=== PATIENT | female | born 1965 | race Caucasian/White ===

== ENCOUNTER 2022-01-08 17:32 | Emergency (ER) | payer BC, SELFPAY ==
[2022-01-08 19:11] LABS: Appearance Urine Clear (Clear); Bilirubin Urine Negative (Negative); Blood Urine 3+ (Negative); Color Urine Amber (Yellow); Glucose Urine Negative (Negative); Ketones Urine Negative (Negative); Leukocyte Esterase Urine 1+ (Negative); Nitrite Urine Negative (Negative); Protein Urine 2+ (Negative); Urobilinogen Urine 0.2 (0.2-1.0); pH Urine 5.5 (5.0-8.5)
[2022-01-08 19:14] VITALS: BP 160/75; PULSE 70; RESP 18; TEMP 36.5; O2SAT 99; BMI 24.6
[2022-01-08 19:20] LABS: Mucus Urine Few; Squamous Epithelial Cell Urine Few (None-Few)
--- NOTE | 2022-01-08 19:29 | ED.GENADULT ---
HPI - General Adult General Chief complaint: Urogenital Problems, Female Stated complaint: CLOTS OF BLOOD IN URINE Time Seen by Provider: 01/08/22 19:20 Source: patient Mode of arrival: ambulatory Limitations: no limitations History of Present Illness HPI narrative: Patient is a 56-year-old female coming in today complaining of blood in her urine. She stated that she developed dysuria yesterday with little specks of blood in it. Today the dysuria got worse and the specks turn into bigger size blood clots. She complains of a little suprapubic discomfort and mild right flank discomfort as well. She denies any fevers or chills. No nausea or vomiting. Nothing seems to make the pain better or worse. She does feel like she can not completely empty her bladder and she feels like she has to urinate more often than usual. She states that she had a urinary bladder infection several months ago that presented the exact same way. She was on antibiotics and all of her symptoms cleared up. Related Data Home Medications Medication Instructions Recorded Confirmed albuterol sulfate 90 mcg/actuation 2 inhalation PRN 10/04/21 10/04/21 aerosol inhaler lamotrigine 100 mg tablet 100 mg PO BID 10/04/21 10/04/21 propranolol 10 mg tablet 10 mg PO DAILY 10/04/21 10/04/21 sumatriptan succinate 50 mg tablet 50 mg PO .As Needed PRN 10/04/21 10/04/21 Previous Rx's Medication Instructions Recorded zolpidem 5 mg tablet 5 mg PO .HS #30 tabs 09/25/21 cephalexin 500 mg capsule 500 mg PO TID 7 days #21 caps 01/08/22 Allergies Allergy/AdvReac Type Severity Reaction Status Date / Time amoxicillin Allergy Mild Rash Verified 10/04/21 10:39 atorvastatin Allergy Mild systemic Verified 10/04/21 10:39 pain hydrocodone AdvReac Mild rash, Verified 10/04/21 10:39 itching rosuvastatin AdvReac Mild Muscle Pain Verified 10/04/21 10:39 Penicillin Allergy Mild Rash Uncoded 10/04/21 10:39 Sulfamethoxazole / AdvReac Mild Rash Uncoded 10/04/21 10:39 trimethoprim Review of Systems Status of ROS: Reports: 10 or more systems reviewed and unremarkable except as noted in History and below [facility] Medical History History of stress test Surgical History History of bladder repair surgery (2000) History of colonoscopy History of hand surgery (02/08/20) History of hysterectomy (2000) History of tonsillectomy History of vaginal surgery (04/12/18) Family History Father Cardiovascular disease Diabetes Mother Lung cancer Other High blood pressure High cholesterol Social History Narrative: has 3 children non-smoker Smoking Status: Never smoker Exam Narrative: Exam Narrative: Well-nourished well-developed patient in no acute distress. Alert and oriented. Answers questions appropriately. Mood and affect are appropriate. Thoughts are goal oriented and rational. No tangential or magical thinking noted. Patient speaks in full sentences without needing to catch their breath. HEENT: Normocephalic atraumatic. Pupils are equally round reactive to light. Extraocular muscles are intact. Conjunctivae are moist without any icterus noted. Cardiovascular: Heart is regular rate and rhythm S1 and S2 are present without any murmurs. Lungs: Clear to auscultation bilaterally no wheezes rhonchi or rales are appreciated. Patient takes deep breaths without any discomfort. Abdomen: Soft and nondistended with normal bowel sounds. She has mild suprapubic discomfort. Mild CVA discomfort on the right side. Extremities: Bilateral lower extremities are without edema. Normal DP and PT pulses. Skin: Well perfused without any obvious rashes. Const: Vital Signs, click to edit/add: Vital Signs - 24 hr 01/08/22 19:14 Temperature 97.7 F Pulse Rate [Right Pulse Oximeter] 70 Respiratory Rate 18 Blood Pressure [Ri ght Upper Arm] 160/75 H Pulse Oximetry 99 Oxygen Delivery Me thod Room Air Course Course Hospital Course: Urinalysis is positive for blood, leukocyte esterase. Vital Signs Vital signs: Initial Vital Signs Temperature 97.7 F 01/08/22 19:14 Temperature Source Temporal Artery Scan 01/08/22 19:14 Pulse Rate 70 01/08/22 19:14 Respiratory Rate 18 01/08/22 19:14 Blood Pressure 160/75 H 01/08/22 19:14 Blood Pressure Mean 103 01/08/22 19:14 Blood Pressure Position Sitting 01/08/22 19:14 Pulse Oximetry 99 01/08/22 19:14 Oxygen Delivery Method 01/08/22 19:14 Vital Signs Temperature 97.7 F 01/08/22 19:14 Pulse Rate 70 01/08/22 19:14 Respiratory Rate 18 01/08/22 19:14 Blood Pressure 160/75 H 01/08/22 19:14 Pulse Oximetry 99 01/08/22 19:14 Oxygen Delivery Method 01/08/22 19:14 Temperature 97.7 F 01/08/22 19:14 Pulse Rate 70 01/08/22 19:14 Respiratory Rate 18 01/08/22 19:14 Blood Pressure 160/75 H 01/08/22 19:14 Pulse Oximetry 99 01/08/22 19:14 Oxygen Delivery Method 01/08/22 19:14 Medical Decision Making MDM Narrative Medical decision making narrative: 56-year-old female with hematuria pure in treated with an antibiotic to see if this clears up. I do recommend she follow up with her primary care provider in 2 weeks to discuss a repeat urinalysis and next steps in management. Patient was agreeable had no other questions. Lab Data Lab results reviewed: Yes I reviewed the patient's lab results Labs: Lab Results 01/08/22 Range/Units 18:40 Urine Color Rebecca A (Yellow) Urine Appearance Clear (Clear) Urine pH 5.5 (5.0-8.5) Ur Specific Meno 1.010 (1.000-1.030) Urine Protein 2+ A (Negative) Urine Glucose (UA) Negative (Negative) Urine Ketones Negative (Negative) Urine Blood 3+ A (Negative) Urine Nitrite Negative (Negative) Urine Bilirubin Negative (Negative) Urine Urobilinogen 0.2 (0.2-1.0) Ur Leukocyte Esterase 1+ A (Negative) Urine RBC 5-10 A (0-2) Urine WBC 5-10 A (0-5) Ur Squamous Epith Cells Few (None-Few) Urine Bacteria None (None) Urine Mucus Few A (None) Discharge Plan Discharge Clinical Impression: UTI (urinary tract infection), Hematuria Patient Disposition: Home, Self-Care Condition: Stable Additional Instructions: Take antibiotics as prescribed. Recommend you follow up with primary care provider in 2 weeks for repeat urine test to make sure the blood is cleared up completely. Prescriptions: New cephalexin 500 mg capsule 500 mg PO TID 7 Days Qty: 21 0RF No Action lamotrigine 100 mg tablet 100 mg PO BID albuterol sulfate 90 mcg/actuation HFA aerosol inhaler 2 inhalation PRN propranolol 10 mg tablet 10 mg PO DAILY sumatriptan succinate 50 mg tablet 50 mg PO .As Needed PRN Rx Instructions: ONE TAB AT ONSET OF HEADACHE, MAY REPEAT Q2H PRN, MAX 200 MG/24 HRS zolpidem 5 mg tablet 5 mg PO .HS Qty: 30 3RF Follow Up/Referrals: Bakari Santana PA-C [Primary Care Provider] - Stand Alone Forms: [employer] Info Instructions
[2022-01-08 19:48] VITALS: BP 160/75; PULSE 70; RESP 18; TEMP 36.5
== END 2022-01-08 19:49 | disposition home or self-care (01) ==
LOC: ED 19:45
PROVIDERS: Emergency Provider Family Medicine; PCP Physician Assistant Medical
DX: N39.0 Urinary tract infection, site not specified (principal); Z87.440 Personal history of urinary (tract) infections; Z88.0 Allergy status to penicillin; Z88.1 Allergy status to other antibiotic agents; Z88.2 Allergy status to sulfonamides; Z88.5 Allergy status to narcotic agent; Z88.8 Allergy status to other drugs, medicaments and biological substances
CPT/HCPCS: 81001; 87086; 99283; 99284

== ENCOUNTER 2022-01-29 07:34 | Outpatient (CLI) | payer BC, SELFPAY ==
[2022-01-29 14:33] LABS: Chloride* 105 mmol/L (96-114); Potassium* 4.7 mmol/L (3.6-5.1); Sodium* 140 mmol/L (135-149)
[2022-01-29 14:36] LABS: Blood Urea Nitrogen* 11 mg/dL (7-30); Carbon Dioxide* 26 mmol/L (20-32); Creatinine* 0.7 mg/dL (0.5-1.5); Estimated Glomerular Filt Rate 100 ml/min
[2022-01-29 14:37] LABS: Calcium* 9.8 mg/dL (8.4-10.6); Glucose* 103 mg/dL (60-115)
== END 2022-01-29 07:35 | disposition home or self-care (01) ==
LOC: FRMREF 07:35
PROVIDERS: PCP Physician Assistant Medical; Visit Provider Physician Assistant Medical
DX: R30.0 Dysuria (principal); N39.0 Urinary tract infection, site not specified
CPT/HCPCS: 80048; 87086; 87186

== ENCOUNTER 2022-02-05 07:29 | Outpatient (CLI) | payer BC, SELFPAY ==
--- NOTE | 2022-02-05 08:00 | CRLHL7_ITS ---
For Patients: As a result of the Century Cures Act, medical imaging exams and procedure reports are released immediately into your electronic medical record. You may view this report before your referring provider. If you have questions, please contact your health care provider. INDICATION: Hematuria. Bladder repair. Hysterectomy. TECHNIQUE: Noncontrast abdominal pelvic CT. COMPARISON: Correlation is made with an abdomen ultrasound July 31, [address]. [facility] at May 26, 2018. FINDINGS: Clear included lung bases. The unenhanced liver, spleen, pancreas, both adrenal glands and both kidneys are within normal limits. No renal stones or obstruction. Cholelithiasis without CT evidence for cholecystitis. Minimal vascular calcifications scattered throughout a normal caliber abdominal aorta and proximal common iliac arteries. The stomach and duodenum are within normal limits. The remainder of the small bowel is unremarkable. There is no evidence for appendicitis or diverticulitis. No bowel obstruction or ileus. No ascites or lymphadenopathy. The urinary bladder is unremarkable. Calcified pelvic phleboliths. Surgically absent uterus. No adnexal mass. The included skeleton is within normal limits. IMPRESSION: 1. No acute abdominopelvic process identified. 2. No urinary tract calculi or renal obstruction. 3. Cholelithiasis without cholecystitis. 4. Subtle increased attenuation of central and left mesenteric fat with a few slightly prominent lymph nodes nonspecific but unchanged. 5. Absent uterus. 6. No significant change when compared with a prior CT 05/26/2018 from [facility] other than technique. Please note that all CT scans at this facility use dose modulation, iterative reconstruction, and/or weight-based dosing when appropriate to reduce radiation dose to as low as reasonably achievable. Dictated by Chidi Rodriguez MD @ 02/05/2022 9:01:40 AM (Electronically Signed)
== END 2022-02-05 07:30 | disposition home or self-care (01) ==
LOC: CT 07:31
PROVIDERS: PCP Physician Assistant Medical; Visit Provider Physician Assistant Medical
DX: R31.9 Hematuria, unspecified (principal); K80.20 Calculus of gallbladder without cholecystitis without obstruction
CPT/HCPCS: 74176

== ENCOUNTER 2022-04-15 14:05 | Outpatient (REF) | payer BC, SELFPAY ==
[2022-04-17 00:28] LABS: Lamotrigine 5.4 ug/mL (3.0-15.0)
== END 2022-04-15 14:06 | disposition home or self-care (01) ==
LOC: LAB 14:05
PROVIDERS: PCP Physician Assistant Medical; Visit Provider Psychiatry & Neurology Neurology
DX: Z51.81 Encounter for therapeutic drug level monitoring (principal)
CPT/HCPCS: 36415; 80175

== ENCOUNTER 2022-09-25 07:33 | Outpatient (CLI) | payer BC, SELFPAY | END 2022-09-25 07:34 | disposition home or self-care (01) | LOC: NFLDREF 09-26 14:10 | PROVIDERS: PCP Physician Assistant Medical; Referring Provider Physician Assistant Medical; Visit Provider Physician Assistant Medical | DX: R53.83 Other fatigue (principal); J45.20 Mild intermittent asthma, uncomplicated; F41.9 Anxiety disorder, unspecified; E78.2 Mixed hyperlipidemia; Z13.6 Encounter for screening for cardiovascular disorders | CPT/HCPCS: 80061; 86618 ==

== ENCOUNTER 2022-12-23 13:52 | Outpatient (CLI) | payer BC, SELFPAY ==
[2022-12-23 14:35] VITALS: BP 126/69; PULSE 84
--- NOTE | 2022-12-23 15:44 | W.PM.STED ---
Stress Test Note Date Date of test: 12/23/22 Providers Primary care provider: Bakari Santana Stress test physician: Eliecer Patricio Stress Test Note Stress test ordered: Stress Echo Indication for test: Shortness of breath Stress test medicine: None Results discussion: Patient is a very nice 57-year-old female presents here for a stress echo, with the primary indication of shortness of breath cardiac stress test medical history form is reviewed, she accepts the risks benefits and side effects of this test would like to proceed. Pre test EKG shows normal sinus rhythm, ventricular rate is 67, blood pressure 114/68. No acute ST wave changes. Patient is exercised for a total time of 10 minutes 2nd, and achieved a metabolic equivalent of 11.7 Mets, with a maximum heart rate is 155 which is 113% of the maximum. Test is terminated because of fulfillment of protocol, during this test she did not have any evidence of any subjective symptoms of ischemia such as chest pain shortness of breath or other issues she did have some ST wave depression noted both inferiorly and laterally, and old leads 2 3 and AVF, this was horizontal, and 1.7 mm. Laterally she had slightly upsloping, of 1.5 mm Impression: Negative subjective, subjectively positive stress test, ST wave depression noted above. This may be a false positive given her high level of exercise and otherwise asymptomatic nature. Clinical correlation with echo results is suggested. Follow up suggested: Await echo results, these will be read by Cardiology, patient left this testing facility in good condition, there were no complications
== END 2022-12-23 13:53 | disposition home or self-care (01) ==
LOC: STRESS 13:52
PROVIDERS: PCP Physician Assistant Medical; Visit Provider Family Medicine
DX: R06.02 Shortness of breath (principal)
CPT/HCPCS: 93016; 93325; 93351

== ENCOUNTER 2023-04-14 10:11 | Outpatient (CLI) | payer BC, SELFPAY ==
--- OUTSIDE RECORDS SUMMARY | 2023-04-15 07:17 | XMS_ITS | Clinical Summary ---
Author Name Unknown Organization [place] Address [facility] [place] [address] Care Team Providers Care Behavioral Intervention Specialist Name Role Phone Doris Clements Primary Care Provider Unavai lable Allergies No known active allergies Resolved Problems Problem Noted Date Diagnosed Date Resolved Date Wrist pain 08/29/2009 11/27/2009 Social History Tobacco Use Types Packs/Day Years Used Date Smoking Tobacco: Never Assessed Adolescent Education Answer Date Record ed Getting School Help Needed Not on file 12/13 Sex and Gender Information Value Date Recorded Sex Assigned at Not on file Gender Identity Not on file Sexual Orientation Not on file Plan of Treatment Health Maintenance Due Date Last Done Comments ADVANCE CARE PLANNING 1965 ANNUAL REVIEW OF HM ORDERS 1963 CT COLONOGRAPHY 1963 FIT 1963 FLEX SIG 1963 GLUCOSE 1963 HEPATITIS B IMMUNIZATION (1 of 3 - 3-dose series) 1965 MAMMO SCREENING 1963 YEARLY PREVENTIVE VISIT 1963 sDNA (Cologuard) 1965 COVID-19 Vaccine (#1) 03/30/1964 COLONOSCOPY 09/27/1973 COLORECTAL CANCER SCREENING 09/27/1973 HIV SCREENING 09/27/1978 HEPATITIS C SCREENING 09/27/1981 PAP 09/27/1984 LIPID 2003 ZOSTER IMMUNIZATION (1 of 2) 09/27/2013 DTAP/TDAP/TD IMMUNIZATION (2 - Td or Tdap) 08/02/2018 08/02/2008 INFLUENZA VACCINE (#1) 2022 9, 01/22/2006, 02/13/2004 PHQ-2 (once per calendar year) 2023 HPV IMMUNIZATION Aged Out No longer e ligible based on patient's age to complete this topic IPV IMMUNIZATION Aged Out No longer e ligible based on patient's age to complete this topic MENINGITIS IMMUNIZATION Aged Out No l onger eligible based on patient's age to complete this topic Pneumococcal Vaccine: Pediatrics (0 to 5 Years) and At-Risk Patients (6 to 64 Years) Aged Out No longer eligible b ased on patient's age to complete this topic RSV MONOCLONAL ANTIBODY Aged Out No l onger eligible based on patient's age to complete this topic Care Teams Behavioral Intervention Specialist Relationship Specialty Start Date End Date Doris Clements PCP - General 09/28/12
--- OUTSIDE RECORDS SUMMARY | 2023-04-15 07:17 | XMS_ITS | Clinical Summary ---
Author Name Unknown Organization [employer] [facility] [employer] Address [place], [place] [address] Care Team Providers Care Content Checker Name Role Phone Tin Burgos MD Unavailable [phone] [place], [facility] Primary Care Provider Unavailable Allergies Active Allergy Reactions Criticality Noted Date Comments Amoxicillin Rash 08/02/2008 Tolerates cefuroxime Sulfamethoxazole-Trimet hoprim Dizziness 02/24/2012 Atorvastatin Myalgia High 01/16/2017 Penicillins *Unknown - Follow up needed 03/29/2013 Tolerates cefuroxime Hydrocodone-Acetaminoph en Itching 11/23/2008 Medications Medication Sig Dispensed Refills Start Date End Date Status SUMAtriptan (IMITREX) 25 mg tabletIndications:Surendra alyse with aura, not intractable, without status migrainosus Take 1 tablet by mouth at onset of migraine. May repeat in 2 hours if needed. Max dose:200mg per 24 hrs. 9 tablet 6 02/26/2017 Active ibuprofen (ADVIL; MOTRIN) 200 mg tabletIndications:Com plication of implanted vaginal mesh, initial encounter Take 3 tablets by mouth every 6 hours. 100 tablet 0 04/12/2018 Active propranolol (INDERAL) 10 mg tabletIndications:Anx iety FOR ANXIETY TAKE 1 TABLET BY MOUTH EVERY 8 HOURS NEEDED FOR ANXIETY. 90 tablet 0 04/28/2018 Active zolpidem (AMBIEN) 5 mg tabletIndications:Oth er insomnia Take 1 tablet by mouth at bedtime if needed for Sleep. TAKE ONE TABLET BY MOUTH AT BEDTIME IF NEEDED FOR SLEEP 30 tablet 3 08/19/2018 Active albuterol HFA (PROAIR HFA) 90 mcg/actuation inhalerIndications:Mi ld intermittent asthma without complication INHALE 1-2 PUFFS BY MOUTH EVERY 4 HOURS IF NEEDED. 8.5 Inhaler 6 08/19/2018 Active hydrOXYzine pamoate (VISTARIL) 25 mg capsuleIndications:An xiety Take 1 capsule by mouth 3 times daily if needed for Anxiety. 12 capsule 0 12/13/2018 Active diazePAM (VALIUM) 2 mg tabletIndications:Men ingiomas, multiple (HC) Please take 1 tablet 30 minutes prior to MRI. May repeat x1 30 minutes later if needed. 2 tablet 0 12/14/2018 Active diazePAM (VALIUM) 2 mg tabletIndications:Men ingiomas, multiple (HC) Please take 1 tablet 30 minutes prior to MRI. May repeat x1 30 minutes later if needed. 2 tablet 0 01/30/2020 Active diazePAM (Valium) 2 mg tabletIndications:Cer ebral meningioma (HC) Please take 1 tablet 30 minutes prior to MRI. May repeat x1 30 minutes later if needed. 2 Tablet 0 11/06/2022 Active Active Problems Problem Noted Date Diagnosed Date Mixed stress and urge urinary incontinence 09/01 Meningioma 08/19/2018 Rotator cuff syndrome of left shoulder 6 Overview: MRI Feb 2016:, RC Tendonopathy without tear with bursitis. Subacromial cortisone injection completed. Anxiety disorder 11/04/2013 Insomnia, unspecified 07/12/2008 Mild intermittent asthma 01/15/2006 Overview: Asthma action plan updated. 09/24/2012 intermittent Neoplasm of unspecified nature of brain 01/16/20 06 Overview: meningioma. found 10/12 Pure hypercholesterolemia 07/30/2005 Resolved Problems Problem Noted Date Diagnosed Date Resolved Date Vaginal granulation tissue 01/04/2018 0 09/01/2018 Simple ovarian cyst 11/21/2015 10/28/19 17 Routine adult health maintenance 01/03/2014 12/19/2014 Overview: Colonoscopy 12/2013 normal repeat in 10 years SINUSITIS, ACUTE MAXILLARY 01/27/2001 1 03/17/2005 CONJUNCTIVITIS 05/21/2000 01/15/2006 SINUSITIS, ACUTE NEC 10/22/1999 006 Immunizations Name Administration Dates Next Due Influenza, IIV3 (Age >=3 years) 01/22/2006,02/12 Tdap 08/02/2008 Tuberculin (PPD) 10/16/2014 Family History Medical History Relation Name Comments Diabetes Father Heart Disease Father Cancer Mother 54, lung c ancer with mets, great aunt Other Mother lung cancer Cancer-colon Other great aunt mate rnal side Cancer-breast Paternal Grandmother ? Diabetes Paternal Grandmother Relation Name Status Comments Father Other Maternal Grandfather Maternal Grandmother Mother (Age 54) Other Paternal Grandfather Paternal Grandmother Sister Alive Social History Tobacco Use Types Packs/Day Years Used Date Smoking Tobacco: Never Smokeless Tobacco: Never Tobacco Cessation:Counseling Given: Yes Alcohol Use Standard Drinks/Week Comments Yes 1 (1 standard drink = 0.6 oz pur e alcohol) 2 drinks monthly PHQ-2 Answer Date Recorded PHQ-2 Score 1 08/19/2018 Sex and Gender Information Value Date Recorded Sex Assigned at Not on file Gender Identity Not on file Sexual Orientation Not on file Obstetrics History Para Term AB IAB SAB Ectopic Multiple Livin g Live Births 3 3 1 2 0 0 0 0 0 3 3 Date Outcome GA Total Labor Labor/2nd/3rd Weight Sex Delivery Anes PTL Isabella A1 A5 Name Cl in Vag Mari ng Vag Mari ng Term Vag Mari ng Last Filed Vital Signs Vital Sign Reading Time Taken Comments Blood Pressure 155/66 12/13/2018 7:00 PM CDT Pulse 71 12/13/2018 7:00 PM CDT Temperature 37.2 ??C (99 ??F) 12/13/2018 6:02 PM CDT Respiratory Rate 18 12/13/2018 7:00 PM CDT Oxygen Saturation 97% 12/13/2018 7:00 PM CDT Inhaled Oxygen Concentration - - Weight 69.4 kg (153 lb) 12/13/2018 6:02 PM CDT Height 167.6 cm (5' 6) 12/13/2018 6:02 PM CDT Body Mass Index 24.69 12/13/2018 6:02 PM CDT Plan of Treatment Health Maintenance Due Date Last Done Comments COVID-19 vaccine series (#1) 03/30/1964 HIV for age 15-65 09/27/1978 Zoster (shingles) series for age 50+ (1 of 2) 09/27/2013 Tetanus booster 08/02/2018 08/02/2008 Mammogram for age 45-75 02/06/2019 02/07/20 18 ([facility] 02/04/2016, 11/09/2013, Additional history exists BMI (ht and wt on same day) for age 18+ 08/20/2019 08/19/2018, 05/18/2018, 04/02/2018, Additional history exists Depression screening for age 12+ 08/20/2019 08/19/2018, 05/26/2018, 02/08/2018, Additional history exists Lipids for age 45-75 01/13/2022 01/13/2017, 10/31/2015, 11/04/2013, Additional history exists Influenza for age 50-64 11/07/2022 01/22/2006, 02/12 Colonoscopy through age 75 01/04/2024 01/03/2014 Tdap Completed 08/02/2008 Hepatitis C screening for age 18-79 Completed 11/04/2013 Pneumococcal series for age 6-64 Aged Out No longer eligible based on patient's age to complete this topic Advance Directives Latest Code Status on File Code Status Date Activated Date Inactivated Comments Full Code 04/12/2018 6:17 AM 04/12/2018 3:02 PM Code Status History Code Status Date Activated Date Inactivated Comments Full Code 04/12/2018 6:17 AM 04/12/2018 6:17 AM Care Teams Content Checker Relationship Specialty Start Date End Date [place], *[facility] PCP - General 12/13/18 Tin Burgos MD [address] Griselda Franco [address] [address] Neurosurgery 11/04/13
--- OUTSIDE RECORDS SUMMARY | 2023-04-15 07:17 | XMS_ITS | Referral Summary ---
Author Name Unknown Organization [place] Address [address] [place] [id number] Care Team Providers Care Cartridge Feeder Name Role Phone Doris Clements Primary Care [...] Orientation Not on file Plan of Treatment Not on file Care Teams Cartridge Feeder Relationship Specialty Start Date End Date Doris Clements PCP - General 09/28/12
== END 2023-04-14 10:12 | disposition home or self-care (01) ==
LOC: NFLDREF 04-15 07:13
PROVIDERS: PCP Physician Assistant Medical; Referring Provider Physician Assistant Medical; Visit Provider Physician Assistant Medical
DX: N30.01 Acute cystitis with hematuria (principal); B96.20 Unspecified Escherichia coli [E. coli] as the cause of diseases classified elsewhere
CPT/HCPCS: 87086; 87186

== ENCOUNTER 2023-06-16 16:00 | Outpatient (REF) | payer BC, SELFPAY ==
--- OUTSIDE RECORDS SUMMARY | 2023-06-16 16:03 | XMS_ITS | Referral Summary ---
Author Name Unknown Organization [facility] Address [address] [place] [id number] Care Team Providers Care Premium Cancellation Clerk Name Role Phone Doris Clements Primary Care [...] of Treatment Not on file Care Teams Premium Cancellation Clerk Relationship Specialty Start Date End Date Doris Clements PCP - General 09/28/12
--- OUTSIDE RECORDS SUMMARY | 2023-06-16 16:03 | XMS_ITS | Clinical Summary ---
Author Name Unknown Organization [facility] Address [place], [place] [address] Care Team Providers Care Professor Of Poultry Science Name Role Phone Tin Burgos MD Unavailable [phone] [place], [facility] Primary Care Provider Unavailable Allergies Active Allergy [...] by mouth every 6 hours. 100 tablet 04/12/2018 Active propranolol (INDERAL) 10 mg tabletIndications:Anx iety FOR ANXIETY TAKE 1 TABLET BY MOUTH EVERY 8 HOURS NEEDED FOR ANXIETY. 90 tablet 04/28/2018 Active zolpidem (AMBIEN) 5 mg tabletIndications:Oth [...] daily if needed for Anxiety. 12 capsule 12/13/2018 Active diazePAM (VALIUM) 2 mg tabletIndications:Men ingiomas, multiple (HC) Please take 1 tablet 30 minutes prior to MRI. May repeat x1 30 minutes later if needed. 2 tablet 12/14/2018 Active diazePAM (VALIUM) 2 mg tabletIndications:Men ingiomas, multiple (HC) Please take 1 tablet 30 minutes prior to MRI. May repeat x1 30 minutes later if needed. 2 tablet 01/30/2020 Active diazePAM (Valium) 2 mg tabletIndications:Cer ebral meningioma (HC) Please take 1 tablet 30 minutes prior to MRI. May repeat x1 30 minutes later if needed. 2 Tablet 11/06/2022 Active Active Problems Problem Noted Date [...] Health Maintenance Due Date Last Done Comments HIV for age 15-65 09/27/1978 Zoster (shingles) series for age 50+ (1 of 2) 09/27/2013 Tetanus booster 08/02/2018 08/02/2008 Mammogram for age 45-75 02/06/2019 02/07/20 18 (Completed outside of [facility]), 02/04/2016, 11/09/2013, Additional history exists BMI (ht and wt on same day) for age 18+ 08/20/2019 08/19/2018, 05/18/2018, 04/02/2018, Additional history exists Depression screening for age 12+ 08/20/2019 08/19/2018, 05/26/2018, 02/08/2018, Additional history exists Lipids for age 45-75 01/13/2022 01/13/2017, 10/31/2015, 11/04/2013, Additional history exists COVID-19 vaccine series (2022- season) 2022 Influenza for age 50-64 11/08/2023 01/22/2006, 02/12 Colonoscopy through age 75 01/04/2024 01/03/2014 Tdap Completed 08/02/2008 Hepatitis C screening for age 18-79 Completed 11/04/2013 Pneumococcal series for age 6-64 Aged Out No longer eligible based on patient's age to complete this topic Procedures Procedure Name Priority Date/Time Associated Diagnosis Comments LIPID PANEL W REFLEX MEASURED LDL Routine 01/13/2017 9:58 AM GREY WASHER Pure hypercholesterolemia XR MAMMO BILAT SCREEN FFDM (IA) Routine 02/04/2016 2:11 PM GREY WASHER Screening for breast cancer ANTI HCV Routine 11/04/2013 10:53 AM CDT Need for hepatitis C screening test from Last 3 Months or Most Recently Relevant to Health Maintenance Results * (ABNORMAL) LIPID PANEL W REFLEX MEASURED LDL (01/13/2017 9:58 AM GREY WASHER) CHOLESTEROL,TOTAL 354(H) 100 - 199 mg/dL 01/13/2017 3:39 PM GREY WASHER [facility] TRIGLYCERIDES 268(H) <150 mg/dL 01/13/2017 3:39 PM GREY WASHER [facility] HDL CHOLESTEROL 45 >40 mg/dL 7 3:39 PM GREY WASHER [facility] TR[facility] LAB[facility] NON-HDL CHOLESTEROL 309(H) <145 mg/dl 01/13/2017 3:39 PM GREY WASHER [facility] TR[facility] LAB[facility] CHOL/HDL RATIO 7.87(H) <4.50 01/13/2017 3:39 PM GREY WASHER [facility] TRAL LAB[facility] LDL CHOLESTEROL 255(H) <=130 mg/dL 01/13/2017 3:39 PM GREY WASHER [facility] TRAL LABORATORY PROVIDER ORDERED STATUS RANDOM 01/13/2017 3:39 PM GREY WASHER [facility] TRA LABORATORY Blood BLOOD SPECIMEN / Unknown Butterfly / Unknown 01/13/2017 9:58 AM GREY WASHER 01/13/2017 9:58 AM GREY WASHER Kimmie Hackett MD CHEMISTRY [facility] [address] [place] [address], [place] * XR MAMMO BILAT SCREEN FFDM (02/04/2016 2:11 PM GREY WASHER) Anatomical Region Laterality Modality BREASTS, Breast Left, Breast Right Bilateral Mammography Impressions 02/05/2016 9:52 AM GREY WASHER ??There is no radiographic evidence for malignancy. ??Recommend annual mammograms. A lay language report of this examination will be provided to the patient. MAMMOGRAM ASSESSMENT: ??ACR 1 Negative Narrative 02/05/2016 9:52 AM GREY WASHER XR MAMMO BILAT SCREEN FFDM [G0202.0] CLINICAL HISTORY: ??This is an asymptomatic 50 y.o. patient. INDICATION FOR EXAM: Mammogram Screening. TECHNIQUE: CC & MLO views were obtained. ??This digital study was evaluated with the assistance of Computer-Aided Detection. COMPARISON FILM: Yes 11/09/13 09/24/12 FINDINGS: ??Mammographically, the breast tissue is heterogeneously dense, which could obscure detection of small masses. There are no dominant masses, suspicious micro calcifications or areas of architectural distortion. Edison Kaba MD MAMMO * ANTI HCV [[id number]] (11/04/2013 10:53 AM CDT) HEPATITIS C ANTIBODY Non-Reacti ve Non-Reacti ve 11/04/2013 5:46 PM CDT [facility] Blood specimen (specimen) BLOOD SPECIMEN / Unknown Venipuncture / Unknown 11/04/2013 10:53 AM CDT 11/04/2013 10:53 AM CDT Narrative [facility] - 11/04/2013 5:46 PM CDT Antibodies to HCV not detected; does not exclude the possibility of exposure to HCV. Doris Clements MD SEND OUTS [facility] [address] [place] [address], from Last 3 Months or Most Recently Relevant to Health Maintenance Advance Directives * Full Code (Latest Code Status on File) Date Activated Date Inactivated Comments 04/12/2018 6:17 AM 04/12/2018 3:02 PM * Full Code Date Activated Date Inactivated Comments 04/12/2018 6:17 AM 04/12/2018 6:17 AM Care Teams Professor Of Poultry Science Relationship Specialty Start Date End Date [facility] PCP - General 12/13/18 Tin Burgos MD [address] [place] [address] Neurosurgery 8/29/14
--- OUTSIDE RECORDS SUMMARY | 2023-06-16 16:03 | XMS_ITS | Clinical Summary ---
Author Name Unknown Organization [facility] Address [address] [place] [address] Care Team Providers Care Metal Pattern Maker Name Role Phone Doris Clements Primary Care [...] of Treatment Not on file Care Teams Metal Pattern Maker Relationship Specialty Start Date End Date Doris Clements PCP - General 09/28/12
[2023-06-18 19:14] LABS: Lamotrigine 6.8 ug/mL (3.0-15.0)
== END 2023-06-16 16:01 | disposition home or self-care (01) ==
LOC: NPINS 16:00
PROVIDERS: PCP Physician Assistant Medical; Visit Provider Psychiatry & Neurology Neurology
DX: G40.201 Localization-related (focal) (partial) symptomatic epilepsy and epileptic syndromes with complex partial seizures, not intractable, with status epilepticus (principal); Z79.899 Other long term (current) drug therapy
CPT/HCPCS: 80175

== ENCOUNTER 2023-07-08 08:17 | Outpatient (CLI) | payer BC, SELFPAY ==
--- OUTSIDE RECORDS SUMMARY | 2023-07-08 08:21 | XMS_ITS | Clinical Summary ---
Author Name Unknown Organization [employer] [facility] Address [place], [place] [address] Care Team Providers Care Bond Runner Name Role Phone Tin Burgos MD Unavailable [phone] [place], [facility] Primary Care Provider Unavailable Allergies Active [...] 45-75 02/06/2019 02/07/20 18 (Completed outside of [facility]), 02/04/2016, 11/09/2013, Additional history exists BMI (ht [...] REFLEX MEASURED LDL Routine 01/13/2017 9:58 AM TRANSMISSION TECHNICIAN Pure hypercholesterolemia XR MAMMO BILAT SCREEN FFDM (IA) Routine 02/04/2016 2:11 PM TRANSMISSION TECHNICIAN Screening for breast cancer ANTI HCV Routine 11/04/2013 10:53 AM CDT Need for hepatitis C screening test from Last 3 Months or Most Recently Relevant to Health Maintenance Results * (ABNORMAL) LIPID PANEL W REFLEX MEASURED LDL (01/13/2017 9:58 AM TRANSMISSION TECHNICIAN) CHOLESTEROL,TOTAL 354(H) 100 - 199 mg/dL 01/13/2017 3:39 PM TRANSMISSION TECHNICIAN [facility] TRIGLYCERIDES 268(H) <150 mg/dL 01/13/2017 3:39 PM TRANSMISSION TECHNICIAN [facility] HDL CHOLESTEROL 45 >40 mg/dL 7 3:39 PM TRANSMISSION TECHNICIAN [facility] TRAL LABORATORY NON-HDL CHOLESTEROL 309(H) <145 mg/dl 01/13/2017 3:39 PM TRANSMISSION TECHNICIAN [facility] TRAL LABORATORY CHOL/HDL RATIO 7.87(H) <4.50 01/13/2017 3:39 PM TRANSMISSION TECHNICIAN [facility] TRAL LABORATORY LDL CHOLESTEROL 255(H) <=130 mg/dL 01/13/2017 3:39 PM TRANSMISSION TECHNICIAN [facility] TRAL LABORATORY PROVIDER ORDERED STATUS RANDOM 01/13/2017 3:39 PM TRANSMISSION TECHNICIAN [facility] TRA LABORATORY Blood BLOOD SPECIMEN / Unknown Butterfly / Unknown 01/13/2017 9:58 AM TRANSMISSION TECHNICIAN 01/13/2017 9:58 AM TRANSMISSION TECHNICIAN Kimmie Hackett MD CHEMISTRY [facility] [address] [place] [address], [place] * XR MAMMO BILAT SCREEN FFDM (02/04/2016 2:11 PM TRANSMISSION TECHNICIAN) Anatomical Region Laterality Modality BREASTS, Breast Left, Breast Right Bilateral Mammography Impressions 02/05/2016 9:52 AM TRANSMISSION TECHNICIAN ??There is no radiographic evidence for malignancy. ??Recommend annual mammograms. A lay language report of this examination will be provided to the patient. MAMMOGRAM ASSESSMENT: ??ACR 1 Negative Narrative 02/05/2016 9:52 AM TRANSMISSION TECHNICIAN XR MAMMO BILAT SCREEN FFDM [G0202.0] CLINICAL [...] Edison Kaba MD MAMMO * ANTI HCV [[id number]] (11/04/2013 10:53 AM CDT) HEPATITIS C ANTIBODY Non-Reacti ve Non-Reacti ve 11/04/2013 5:46 PM CDT [facility] Blood specimen (specimen) BLOOD SPECIMEN / Unknown Venipuncture / Unknown 11/04/2013 10:53 AM CDT 11/04/2013 10:53 AM CDT Narrative [facility] - 11/04/2013 5:46 PM CDT Antibodies to HCV not detected; does not exclude the possibility of exposure to HCV. Doris Clements MD SEND OUTS [facility] [address] [place] [address], from Last 3 Months or Most Recently Relevant to Health Maintenance Advance Directives * Full Code (Latest Code Status on File) Date Activated Date Inactivated Comments 04/12/2018 6:17 AM 04/12/2018 3:02 PM * Full Code Date Activated Date Inactivated Comments 04/12/2018 6:17 AM 04/12/2018 6:17 AM Care Teams Bond Runner Relationship Specialty Start Date End Date [facility] PCP - General 12/13/18 Tin Burgos MD [address] [place] [address] Neurosurgery 8/29/14
--- OUTSIDE RECORDS SUMMARY | 2023-07-08 08:21 | XMS_ITS | Clinical Summary ---
Author Name Unknown Organization [facility] Address [address] [place] [address] Care Team Providers Care Railroad Supervisor Of Engines Name Role Phone No Ref-Primary, Physician Primary Care Provider Allergies No known active allergies Resolved Problems [...] of Treatment Not on file Care Teams Railroad Supervisor Of Engines Relationship Specialty Start Date End Date No Ref-Primary, Physician PCP - General 07/05/23
--- OUTSIDE RECORDS SUMMARY | 2023-07-08 08:21 | XMS_ITS | Referral Summary ---
Author Name Unknown Organization [facility] Address [address] [place] [address] Care Team Providers Care Practice Director Name Role Phone No Ref-Primary, Physician Primary [...] of Treatment Not on file Care Teams Practice Director Relationship Specialty Start Date End Date No Ref-Primary, Physician PCP - General 07/05/23
== END 2023-07-08 08:18 | disposition home or self-care (01) ==
PROVIDERS: PCP Physician Assistant Medical; Visit Provider Physician Assistant Medical
DX: R06.02 Shortness of breath (principal); Z13.228 Encounter for screening for other metabolic disorders; Z13.29 Encounter for screening for other suspected endocrine disorder
CPT/HCPCS: 80053; 84443

== ENCOUNTER 2023-12-16 07:28 | Outpatient (CLI) | payer BC, SELFPAY ==
--- OUTSIDE RECORDS SUMMARY | 2023-12-16 07:30 | XMS_ITS | Clinical Summary ---
Author Organization [facility] Address [place], [place] [address] Care Team Providers Care Staff Nuclear Medicine Technologist Name Role Phone Tin Burgos MD Unavailable [phone] [place], [facility] Primary Care Provider Unavailable Allergies Active [...] Rotator cuff syndrome of left shoulder 6 Overview (02/14/2016): MRI Feb 2016:, RC Tendonopathy without tear with bursitis. Subacromial cortisone injection completed. Anxiety disorder 11/04/2013 Insomnia, unspecified 07/12/2008 Mild intermittent asthma 01/15/2006 Overview (09/24/2012): Asthma action plan updated. 09/24/2012 intermittent Neoplasm of unspecified nature of brain 01/16/20 06 Overview (01/15/2006): meningioma. found 10/12 Pure hypercholesterolemia 07/30/2005 Resolved Problems Problem Noted Date Diagnosed Date Resolved Date Vaginal granulation tissue 01/04/2018 0 09/01/2018 Simple ovarian cyst 11/21/2015 10/28/19 17 Routine adult health maintenance 01/03/2014 12/19/2014 Overview (01/03/2014): Colonoscopy 12/2013 normal repeat in 10 years [...] Outcome GA Total Labor Labor/2nd/3rd Weight Sex Type Anes PTL Isabella A1 A5 Name Clin Vag Living Vag Living Term Vag Living Last Filed Vital Signs Vital Sign Reading [...] 45-75 02/06/2019 02/07/20 18 (Completed outside of [facility]), 02/04/2016, 11/09/2013, Additional history exists BMI (ht and wt on same day) for age 18+ 08/20/2019 08/19/2018, 05/18/2018, 04/02/2018, Additional history exists Depression screening for age 12+ 08/20/2019 08/19/2018, 05/26/2018, 02/08/2018, Additional history exists Lipids for age 45-75 01/13/2022 01/13/2017, 10/31/2015, 11/04/2013, Additional history exists COVID-19 vaccine series (2023- season) 2023 Influenza for age 50-64 11/08/2023 01/22/2006, 02/12 Colonoscopy through age 75 01/04/2024 01/03/2014 Tdap Completed 08/02/2008 Hepatitis C screening for age 18-79 Completed 11/04/2013 Pneumococcal series for age 6-64 Aged Out No longer eligible based on patient's age to complete this topic Procedures Procedure Name Priority Date/Time Associated Diagnosis Comments LIPID PANEL W REFLEX MEASURED LDL Routine 01/13/2017 9:58 AM CONTOUR STITCHER Pure hypercholesterolemia XR MAMMO BILAT SCREEN FFDM (IA) Routine 02/04/2016 2:11 PM CONTOUR STITCHER Screening for breast cancer ANTI HCV Routine 11/04/2013 10:53 AM CDT Need for hepatitis C screening test from Last 3 Months or Most Recently Relevant to Health Maintenance Results * (ABNORMAL) LIPID PANEL W REFLEX MEASURED LDL (01/13/2017 9:58 AM CONTOUR STITCHER) CHOLESTEROL,TOTAL 354(H) 100 - 199 mg/dL 01/13/2017 3:39 PM CONTOUR STITCHER [facility] TRAL LABORATORY TRIGLYCERIDES 268(H) <150 mg/dL 01/13/2017 3:[address] [facility] TRAL LABORATORY HDL CHOLESTEROL 45 >40 mg/dL 7 3:39 PM CONTOUR STITCHER [facility] TRAL LABORATORY NON-HDL CHOLESTEROL 309(H) <145 mg/dl 01/13/2017 3:39 PM CONTOUR STITCHER [facility] TRAL LABORATORY CHOL/HDL RATIO 7.87(H) <4.50 01/13/2017 3:[address] [facility] TRAL LABORAT[facility] LDL CHOLESTEROL 255(H) <=130 mg/dL 01/13/2017 3:39 PM CONTOUR STITCHER [facility] TRAL LABORATORY PROVIDER ORDERED STATUS RANDOM 01/13/2017 3:[address] [facility] TRA LABORATORY Blood BLOOD SPECIMEN / Unknown Butterfly / Unknown 01/13/2017 9:58 AM CONTOUR STITCHER 01/13/2017 9:58 AM CONTOUR STITCHER Kimmie Hackett MD CHEMISTRY [facility] [address] [place] [address], [place] * XR MAMMO BILAT SCREEN FFDM (02/04/2016 2:11 PM CONTOUR STITCHER) Anatomical Region Laterality Modality BREASTS, Breast Left, Breast Right Bilateral Mammography Impressions 02/05/2016 9:52 AM CONTOUR STITCHER ??There is no radiographic evidence for malignancy. ??Recommend annual mammograms. A lay language report of this examination will be provided to the patient. MAMMOGRAM ASSESSMENT: ??ACR 1 Negative Narrative 02/05/2016 9:52 AM CONTOUR STITCHER XR MAMMO BILAT SCREEN FFDM [G0202.0] CLINICAL [...] Edison Kaba MD MAMMO * ANTI HCV [90722.2] (11/04/2013 10:53 AM CDT) HEPATITIS C ANTIBODY Non-Reacti ve Non-Reacti ve 11/04/2013 5:46 PM CDT [facility] Blood specimen (specimen) BLOOD SPECIMEN / Unknown Venipuncture / Unknown 11/04/2013 10:53 AM CDT 11/04/2013 10:53 AM CDT Narrative [facility] - 11/04/2013 5:46 PM CDT Antibodies to HCV not detected; does not exclude the possibility of exposure to HCV. Doris Clements MD SEND OUTS [facility] LAB[facility] [address] [place] [address], from Last 3 Months or Most Recently Relevant to Health Maintenance Advance Directives * Full Code (Latest Code Status on File) Date Activated Date Inactivated Comments 04/12/2018 6:17 AM 04/12/2018 3:02 PM * Full Code Date Activated Date Inactivated Comments 04/12/2018 6:17 AM 04/12/2018 6:17 AM Care Teams Staff Nuclear Medicine Technologist Relationship Specialty Start Date End Date [place], [facility] PCP - General 12/13/18 Tin Burgos MD [address] [address] Neurosurgery 11/04/13
--- OUTSIDE RECORDS SUMMARY | 2023-12-16 07:31 | XMS_ITS | Clinical Summary ---
Author Organization [place] Address [address] [place] [address] Care Team Providers Care It Consulting Director Name Role Phone No Ref-Primary, Physician [...] of Treatment Not on file Care Teams It Consulting Director Relationship Specialty Start Date End Date No Ref-Primary, Physician PCP - General 07/05/23
--- OUTSIDE RECORDS SUMMARY | 2023-12-16 07:31 | XMS_ITS | Referral Summary ---
Author Organization [facility] Address [address] [place] [address] Care Team Providers Care Yeast Fermentation Attendant Name Role Phone No Ref-Primary, Physician Primary [...] of Treatment Not on file Care Teams Yeast Fermentation Attendant Relationship Specialty Start Date End Date No Ref-Primary, Physician PCP - General 07/05/23
--- NOTE | 2023-12-16 07:45 | CRLHL7_ITS ---
For Patients: As a result of the Century Cures Act, medical imaging exams and procedure reports are released immediately into your electronic medical record. You may view this report before your referring provider. If you have questions, please contact your health care provider. DIGITAL DIAGNOSTIC BILATERAL MAMMOGRAM USING TOMOSYNTHESIS AND COMPUTER-AIDED DETECTION RIGHT BREAST ULTRASOUND CLINICAL HISTORY: RIGHT breast nipple inversion. COMPARISON: 02/05/20, 02/04/16, 11/09/13. TECHNIQUE: Digital BILATERAL mammogram in four projections with computer-aided detection. Tomosynthesis was used in this interpretation. Real-time ultrasound imaging of RIGHT breast with imaging documentation. BREAST COMPOSITION: There are scattered areas of fibroglandular density. FINDINGS: 3D CC/MLO BILATERAL mammogram images submitted. No suspicious masses or architectural distortion. No suspicious calcifications. No adenopathy. Targeted RIGHT breast ultrasound performed in the subareolar region performed. Normal fibroglandular tissue is present with incidental duct ectasia. No intraductal lesion. IMPRESSION: No suspicious findings. RECOMMENDATIONS: Annual BILATERAL screening mammography. Results and recommendations discussed with the patient. BI-RADS Category 2: Benign A lay language report of this examination will be provided to the patient. Dictated by Luis Herzog MD @ 12/16/2023 8:43:06 AM jj/Dictated by: Luis Herzog MD @ 12/16/2023 8:43:00 AM (Electronically Signed)
--- NOTE | 2023-12-16 08:15 | CRLHL7_ITS ---
For Patients: As a result of the Cures Act, medical imaging exams and procedure reports are released immediately into your electronic medical record. You may view this report before your referring provider. If you have questions, please contact your health care provider. PLEASE SEE DIGITAL DIAGNOSTIC BILATERAL MAMMOGRAM PERFORMED SAME DAY CRL:komal sauceda/Dictated by: Luis Herzog MD @ 12/16/2023 8:43:00 AM (Electronically Signed)
== END 2023-12-16 07:29 | disposition home or self-care (01) ==
LOC: MAMMO 07:29
PROVIDERS: PCP Physician Assistant Medical; Visit Provider Physician Assistant Medical
DX: N64.59 Other signs and symptoms in breast (principal)
CPT/HCPCS: 76642; 77066; G0279